=== PATIENT | female | born 1975 | race Caucasian/White ===

== ENCOUNTER → 2017-01-13 | Outpatient (CLI) | payer OTHER ==
[~2017-01-13] MED LIST: ALEVE220 M1 PO; AMITRIPTYLINE H25 MG PO; ANTIVERT PO; ATIVAN PO; BACTRIM DS TABL1 TA1 PO; BENADRYL25 M1 PO; CYMBALTA30 MG PO; DIAZEPAM PO; DICLOFENAC SOD100 MG PO; FLEXERIL PO; FLEXERIL10 M1 PO; FLEXERIL10 MG PO; HYDROCODON-ACE1 EAC1 PO; HYDROCODON-ACE118 ML PO; HYDROCODONE/APA1 T16 PO; IBUPROFEN PO; KLONOPIN0.5 MG PO; LORTAB 10-5001 EACH PO; MEDI-PATCH WIT1 EACH TP; METRONIDAZOLE PO; MOBIC PO; MOTRIN600 M1 PO; NEURONTIN100 MG PO; NEURONTIN300 MG PO; NORCO 10/3251 TAB PO; OXYCODON-ACETA1 EAC1 PO; PEPCID AC20 M1 PO; PERCOCET 7.5-31 EACH PO; PHENERGAN W/CO120 ML PO; PREDNISONE PO; PROTONIX PO; PROZAC10 M1 PO; TIZANIDINE HCL4 M1 PO; VICODIN PO; VITAMIN B-12500 MCG PO; ZITHROMAX1 G/PKT PO
--- NOTE | ~2017-01-13 | EKG ---
PATIENT: ROMULO ASHER UNIT #: [id number] Ventricular Rate: 61 BPM Atrial Rate: 61 BPM P-R Interval: 130 ms QRS Duration: 108 ms Q-T Interval: 430 ms QTC Calculation(Bezet): 432 ms P Sayner: 25 degrees Calculated R Sayner: 45 degrees Calculated T Sayner: 20 degrees Diagnosis Line: Normal sinus rhythm Diagnosis Line: Cannot rule out Anterior infarct , age Diagnosis Line: undetermined Diagnosis Line: Abnormal ECG Diagnosis Line: When compared with ECG of 19-AUG-2015 10:05, Diagnosis Line: No significant change was found Diagnosis Line: Confirmed by MALCOLM VASQUES MD ([id number]) on Diagnosis Line: 01/14/2017 12:04:23 PM INTERPRETING MD: CAPRICE HUMMEL
[2017-01-13 11:16] LABS: HEMATOCRIT 42.5 % (35.0-45.0); HEMOGLOBIN 14.6 gm/dL (12.0-16.0); MEAN CELL VOLUME 90.7 FL (83-96); MEAN CORPUSCULAR HEMOGLOBIN 31.2 PG (28-34); MEAN CORPUSCULAR HGB CONC 34.3 g/dL (30-36); MEAN PLATELET VOLUME 9.1 FL (6.5-11.5); RED BLOOD COUNT 4.68 X10e (3.90-5.30); RED CELL DISTRIBUTION WIDTH 13.3 % (11.0-15.5); WHITE BLOOD COUNT 8.2 X10e3 (4.0-10.5)
[2017-01-13 11:36] LABS: CALCIUM SERUM 8.5 mg/dL (8.4-10.2); GLOM FILT RATE Estimated 69.5 mL/min (>60); POTASSIUM 4.3 mmol/L (3.5-5.1)
== END | disposition home or self-care (01) ==
LOC: SLAB 10:57
PROVIDERS: Orthopaedic Surgery
DX: Z01.818 Encounter for other preprocedural examination (principal)
CPT/HCPCS: 36415; 80048; 85027; 93005

== ENCOUNTER 2017-01-30 23:59 | Emergency (ER) | payer BC | END 2017-01-31 00:49 | disposition home or self-care (01) | LOC: CED 23:59 | DX: M79.661 Pain in right lower leg (principal); F41.9 Anxiety disorder, unspecified; F17.200 Nicotine dependence, unspecified, uncomplicated; Z88.0 Allergy status to penicillin; Z88.2 Allergy status to sulfonamides; Z88.1 Allergy status to other antibiotic agents; Z79.899 Other long term (current) drug therapy | CPT/HCPCS: 96372; 99283; J1650 ==

== ENCOUNTER → 2017-01-31 | Outpatient (CLI) | payer BC ==
--- NOTE | ~2017-01-31 | US85 ---
[facility] A Service of [facility] RADIOLOGY TEXT RESULTS PATIENT: ROMULO ASHER LOCATION: [facility] : 75 UNIT #: [id number] AGE: [address]: Michelle Parker MD SEX: F ORDER DR: [id number] [facility] [address] [place], [place] [address] [id number] O MR#: [id number] Acc #: [id number] NAME: ROMULO ASHER : 1975 SEX: F STUDY DATE/TIME: 01/31/2017 11:54 UNIT: [facility] ROOM: STUDY DESCRIPTION: [facility] Attending Physician: Michelle Parker M.D. Referring Physician: Michelle Parker M.D. Ordering Physician: Michelle Parker M.D. Primary Care Physician: Prieto Jacobo M.D. MEDICAL IMAGING REPORT This report is preliminary unless electronic signature is present EXAM Right lower extremity venous duplex 01/31/17 HISTORY Right lower extremity pain and cramping for one day. Family history of blood clots. Evaluate for deep venous thrombosis. Shoulder surgery one week ago. TECHNIQUE Venous ultrasound examination of the right lower extremity was performed using grayscale, spectral Doppler and color flow Doppler imaging. FINDINGS The examination is negative. There is no evidence of right lower extremity deep venous thrombus from the groin to the lower calf. Visualized greater saphenous vein is also patent. IMPRESSION Negative examination. No evidence of right lower extremity deep venous thrombosis. Dictated by... Lobo Coello M.D. THIS IS AN ELECTRONICALLY VERIFIED REPORT Lobo Coello M.D. at 02/01/2017 2:10 PM JENNY/anton TD: 01/31/2017 15:15 [facility] A Service of [facility] RADIOLOGY TEXT RESULTS PATIENT: ROMULO ASHER LOCATION: [facility] : 75 UNIT #: [id number] AGE: [address]: Michelle Parker MD SEX: F ORDER DR: JOB #: [id number] MEDICAL IMAGING REPORT Page 1 of 1 COPY
== END | disposition home or self-care (01) ==
LOC: CRAD 10:52
DX: M79.661 Pain in right lower leg (principal); Z98.890 Other specified postprocedural states
CPT/HCPCS: 93971